=== PATIENT | male | born 1975 | race Hispanic/Latino ===

== ENCOUNTER 2017-10-16 08:54 | Emergency (ER) | payer BC ==
[~2017-10-16] VITALS: Ht 170.2 cm; Wt 114.5 kg
[2017-10-16 09:37] LABS: BASOPHIL (%) 0.3 % (0-1); EOSINOPHIL COUNT 0.1 K/uL (0-0.3); HEMATOCRIT 40.7 % (38.0-50.0); HEMOGLOBIN 13.9 G/DL (12.5-16.6); IMMATURE GRANULOCYTE (%) 0.4 % (0.0-0.7); LYMPHOCYTE (%) 20.1 % (15-42); LYMPHOCYTE COUNT 1.6 K/uL (1.0-2.8); MCH 29.3 PG (29.0-34.0); MCHC 34.2 G/DL (30.0-36.0); MCV 85.7 FL (86-99); MONOCYTE (%) 9.1 % (3-12); MONOCYTE COUNT 0.7 K/uL (0-0.8); NEUTROPHIL (%) 69.1 % (45-76); NEUTROPHIL COUNT 5.5 K/uL (1.8-6.4); PLATELET COUNT 218 K/uL (156-360); RBC DIS.WIDTH-CV 12.1 % (11.8-14.6); RBC DIS.WIDTH-SD 38.1 % (39-53); RED BLOOD COUNT 4.75 M/uL (4.00-5.50); WHITE BLOOD COUNT 7.9 K/uL (4.1-10.2)
[2017-10-16 09:47] LABS: ALBUMIN 4.4 g/dL (3.2-4.8); CHLORIDE 104 mEq/L (99-109); POTASSIUM 4.2 mEq/L (3.7-5.4); SODIUM 138 mEq/L (136-147)
[2017-10-16 09:49] LABS: GLUCOSE 128 mg/dL (70-99); TOTAL PROTEIN 7.7 g/dL (6.4-8.3)
[2017-10-16 09:51] LABS: TOTAL BILIRUBIN 0.4 mg/dL (0.0-1.0)
[2017-10-16 09:53] LABS: ALKALINE PHOSPHATASE 67 IU/L (3-129); GFR ESTIMATE (CALCULATED) > 59 mL/min/ (58.99-99999)
[2017-10-16 09:54] LABS: UREA NITROGEN (BUN) 13 mg/dL (9-23)
[2017-10-16 09:55] LABS: AST (GOT) 16 IU/L (2-34)
[2017-10-16 09:56] LABS: ALT (GPT) 19 IU/L (3-49)
[2017-10-16] MEDS ORDERED: AUGMENTIN875 MG PO (11:50)
[2017-10-16 13:02] VITALS: BP 129/68
== END 2017-10-16 13:06 | disposition home or self-care (01) ==
LOC: EME 08:54
PROVIDERS: Emergency Medicine Emergency Medical Services
DX: J01.40 Acute pansinusitis, unspecified (principal); H53.149 Visual discomfort, unspecified
CPT/HCPCS: 70450; 70486; 80053; 85025; 87040; 99281; 99285; J0295; J0780; J2270; J7040; J7050